=== PATIENT | female | born 1935 | race Caucasian/White ===

== ENCOUNTER 2021-11-18 11:58 | Emergency (ER) | payer MEDICARE, OTHER ==
[~2021-11-18] VITALS: Ht 172.7 cm; Wt 62.6 kg
[2021-11-18] MEDS ORDERED: IPRATROPIUM BRO15 ML NAS (12:26)
[2021-11-18] MEDS ORDERED: FLUTICASONE PRO16 GM NAS (12:26)
[2021-11-18] MEDS ORDERED: METOPROLOL SUCC50 MG PO (12:26)
[2021-11-18] MEDS ORDERED: BACTRIM DS TAB1 EACH PO (17:32)
--- NOTE | 2021-11-22 15:22 | EKG ---
[facility] [address] [place] [address] Signed AV dual-paced rhythm Abnormal ECG No previous ECGs available Confirmed by Jayleen Crawford MD () on 11/22/2021 3:22:04 PM Electronically Signed By: JAYLEEN CRAWFORD MD 11/22/211521 PATIENT NAME: SUSAN PRASAD Electrocardiogram DATE OF : 39 PHYSICIAN: JAYLEEN CRAWFORD MD REPORT #: [id number] REPORT IS CONFIDENTIAL AND NOT TO BE RELEASED WITHOUT AUTHORIZATION
== END 2021-11-18 17:46 | disposition home or self-care (01) ==
LOC: ED 11:58
DX: R55 Syncope and collapse (principal); N39.0 Urinary tract infection, site not specified; I10 Essential (primary) hypertension; Z88.0 Allergy status to penicillin; Z79.899 Other long term (current) drug therapy
CPT/HCPCS: 36415; 71045; 80053; 81001; 83735; 84484; 85025; 87088; 87186; 93005; 93010; 96374; 99284-25; J0696; J7030